=== PATIENT | male | born 1960 | race Caucasian/White ===

== ENCOUNTER → 2021-09-15 07:42 | Outpatient (CLI) | payer OTHER, SELFPAY ==
--- NOTE | ~2021-09-15 | MR_ITS ---
EXAMINATION: MR shoulder RT wo con DATE: 09/15/2021 08:24 INDICATION: Right rotator cuff muscle and tendon strain presenting with right shoulder pain and limit ed range of motion. TECHNIQUE: Magnetic resonance imaging (MRI) of the right shoulder was performed without intravenous c ontrast. Sequences included axial PD-weighted FS FSE, coronal oblique PD-weighted FS FSE, coronal obl ique T2-weighted FS FSE, sagittal PD-weighted FS FSE, and sagittal T1-weighted SE. COMPARISON: None. FINDINGS: Coracoacromial arch: The acromion undersurface is curved in morphology (type II). The coracoacromial ligament is normal. M ild to moderate acromioclavicular osteoarthritis with mild subarticular cystic change at the anterior and of the clavicle and small inferiorly directed osteophytes. Rotator cuff: Full-thickness tear of the complete width of the supraspinatus and infraspinatus tendons along the lindquist perior facet and anterior portion of the middle facet footplates with small amount of residual attach ed torn infraspinatus tendon material along the posterior aspect of the middle facet footplate. The t eres minor tendon is normal. Partial thickness articular sided tear involving the cephalad two thirds of the lesser tuberosity footplate of the subscapularis tendon. The bursal side of the tendon contig uous with the intact transverse humeral ligament remains intact as does the portion of the tendon ext ending to the caudal third of the lesser tuberosity where there is mild underlying cystic change. The re is mild fatty atrophy of the supraspinatus, infraspinatus and cephalad half of the subscapularis m uscle bellies. Biceps tendon, glenoid labrum and glenohumeral cartilage: The long head biceps tendon is torn from its glenoid anchor and retracted below the level of the inte rtubercular groove. Normal anterosuperior sublingual foramen. There is mild degenerative fraying ezequiel g the free edge of the posterior superior glenoid labrum. Glenohumeral cartilage is normal. Fluid: Moderate-sized glenohumeral joint effusion with fluid extending through the full-thickness rotator cu ff tear into the subacromial/subdeltoid bursa. No loose osteochondral bodies. Bones: Normal marrow signal. No fracture or pathologic marrow replacing process. IMPRESSION: 1. Complete full-thickness tear of the supraspinatus and infraspinatus tendons and moderate severity articular sided tear involving the cephalad two thirds of the lesser tuberosity footplate of the subs capularis tendon. 2. Complete tear and distal retraction of the long head biceps tendon. 3. Mild degenerative fraying along the free edge of the posterior superior glenoid labrum. 4. Mild to moderate acromioclavicular osteoarthritis. Reviewed, dictated and finalized at location B. [facility] IMPRESSION: 1. Complete full-thickness tear of the supraspinatus and infraspinatus tendons and moderate severity articular sided tear involving the cephalad two thirds of the lesser tuberosity footplate of the subscapularis tendon. 2. Complete tear and distal retraction of the long head biceps tendon. 3. Mild degenerative fraying along the free edge of the posterior superior yohana oid labrum. 4. Mild to moderate acromioclavicular osteoarthritis.
== END ==
PROVIDERS: PCP Family Medicine; Visit Provider Family Medicine
DX: M75.121 Complete rotator cuff tear or rupture of right shoulder, not specified as traumatic (principal); M19.011 Primary osteoarthritis, right shoulder; S46.811A Strain of other muscles, fascia and tendons at shoulder and upper arm level, right arm, initial encounter; S46.111A Strain of muscle, fascia and tendon of long head of biceps, right arm, initial encounter
CPT/HCPCS: 73221

== ENCOUNTER 2021-12-12 02:23 | Emergency (ER) | payer OTHER, SELFPAY ==
--- NOTE | ~2021-12-12 | XR_ITS ---
EXAMINATION: XR lumbar spine 2-3V DATE: 12/12/2021 04:05 INDICATION: Low back pain TECHNIQUE: Anteroposterior and lateral views of the lumbar spine, and cone-down lateral view of the l umbosacral junction were obtained. COMPARISON: None. FINDINGS: There is no fracture, dislocation, or subluxation. The vertebral body heights are normal. T here is moderate loss of intervertebral disc space height at L4-5 and mild loss of disc space height at L1-2 and L2-3. Small degenerative osteophytes project from the anterior endplates of multiple vert ebral bodies. There is moderate facet osteoarthritis of the lower lumbar spine. IMPRESSION: 1. Moderate lumbar spondylosis without acute findings. Reviewed, dictated and finalized at location A.
[2021-12-12 02:28] VITALS: BP 130/87; PULSE 82; RESP 17; TEMP 36.6; O2SAT 97
[2021-12-12] MEDS: SODIUM CHLORIDE 0.9% IV 1,000 ML 999 ML IV CONT (03:30)
[2021-12-12] MEDS: KETOROLAC 30 MG/ML VIAL (*BKC) IV PUSH (03:40)
[2021-12-12] MEDS: diazePAM INJ (*CRX) 10 MG/2 ML SYRINGE 5 MG IV PUSH (03:43)
[2021-12-12] MEDS: MORPHINE SULFATE (*CRX) 4 MG/ML INJ IV PUSH (05:13)
--- NOTE | 2021-12-12 06:32 | ED.GENADULT ---
HPI - General Adult General Chief complaint: Back Pain/Injury Stated complaint: LOWER BACK PAIN Time Seen by Provider: 12/12/21 02:55 History of Present Illness HPI narrative: Patient is a 61-year-old male who presents to the ER with low back pain. Began yesterday. Reports he is at work and been lifting a vanity. He felt a pull in his right low back. Pain is slowly increased throughout the day. Worse with twisting and bending. Radiates into the legs. No numbness or tingling of groin. No difficulty with urination or defecation. Has had similar pain in the past. He has been applying icCallFire hot without improvement. Has not taken any oral medications. Related Data Home Medications Medication Instructions Recorded Confirmed sodium hyaluronate (viscosup) mg INTRA-ARTICULAR 12/12/21 [Euflexxa] Allergies Allergy/AdvReac Type Severity Reaction Status Date / Time No Known Allergies Allergy Verified 11/25/21 10:40 Review of Systems Review of Systems: All systems reviewed & are unremarkable except as noted in HPI and below Constitutional: Constitutional: Denies chills, Denies fever(s) and Denies weakness Gastrointestinal: Gastrointestinal: Denies abdominal pain, Denies constipation, Denies nausea and Denies vomiting Genitourinary: Genitourinary: Denies oliguria, Denies dysuria and Denies urinary incontinence Musculoskeletal: Musculoskeletal: Reports back pain, Denies arthralgias and Reports muscle cramps Neurologic: Denies headache(s), Denies focal weakness and Denies numbness PMFSH Past Medical History Medical History Arthritis Arthritis of joint of toe Bilateral knee pain Chronic headaches DJD of AC (acromioclavicular) joint Enlarged prostate without lower urinary tract symptoms (luts) Fibroma of lip Hair loss Hallux rigidus of left foot Hearing loss Kidney stones Left knee DJD Right knee DJD Vision abnormalities Wears glasses Family History Family History Father Patient's father is Mother Hypertension Sibling Malignant neoplasm of prostate Other Arthritis Cerebrovascular accident High cholesterol Malignant neoplasm Social History Social History Smoking packs per day: 1 Smoking cigarettes per day: 20.0 Years smoked: 25 Smoking pack-years: 25.00 Tobacco type: smokeless tobacco Smokeless tobacco user: chewing tobacco Second hand tobacco smoke exposure: No Smoking end date: 09/11/97 Alcohol intake: current Drinks per week: 8 Substance use: never Substance use type: does not use Gender identity (if verbalized by the patient): Male Exam Narrative: GENERAL: Uncomfortable-appearing, well-nourished, and in no acute distress. HEAD: Normocephalic, atraumatic. CHEST: Clear to auscultation. No respiratory distress. HEART: Regular rate and rhythm. Normal peripheral pulses. Back: No midline tenderness of the thoracic or lumbar spine. There is palpable spasm and tenderness in the right paraspinal muscular region of L3/4. No left-sided paraspinal muscular tenderness. EXTREMITIES: Normal range of motion. No edema. SKIN: Warm, dry, no rash. NEURO: Alert and oriented x3. Able ambulate with normal strength in legs. PSYCH: Normal mood and affect. Course Course Emergency Course: Patient with modest improvement after Valium and Toradol and fluids. Patient subsequently received a dose of morphine IV. After this injection patient felt as if his pain was significant improved and was comfortable discharge home. Will discharge with anti-inflammatory medication as well as antispasmodics. Will give work note. Recommend follow-up with PCP. Vital Signs Vital signs: Vital Signs Temperature 97.9 F 12/12/21 02:28 Pulse Rate 82 12/12/21 02:28 Respiratory Rate 17 12/12/21 02:28 Blood Pressure 130/87
[2021-12-12 06:44] VITALS: BP 116/62; PULSE 70; RESP 18; O2SAT 99
== END 2021-12-12 06:50 | disposition home or self-care (01) ==
PROVIDERS: Emergency Provider Emergency Medicine; PCP Family Medicine
DX: M62.830 Muscle spasm of back (principal); N40.0 Benign prostatic hyperplasia without lower urinary tract symptoms; M19.019 Primary osteoarthritis, unspecified shoulder; M17.0 Bilateral primary osteoarthritis of knee; Z87.442 Personal history of urinary calculi; Z87.891 Personal history of nicotine dependence; X50.0XXA Overexertion from strenuous movement or load, initial encounter
CPT/HCPCS: 72100; 96361; 96374; 96375; 99284; J1885; J2270; J3360; J7030

== ENCOUNTER 2022-07-29 10:10 | Outpatient (CLI) | payer OTHER, SELFPAY ==
--- NOTE | 2022-07-29 10:25 | ECG_ITS ---
Measurements Intervals [place] Rate: 66 P: 24 SC: 138 QRS: 64 QRSD: 104 T: 21 QT: 379 QTc: 398 Interpretive Statements SINUS RHYTHM NORMAL ECG NO PREVIOUS ECG AVAILABLE FOR COMPARISON Electronically Signed On 07-29-2022 12:28:33 COMMUNITY HEALTH EDUCATION COORDINATOR by Karthik Luna D.O.
== END 2022-07-29 10:11 | disposition home or self-care (01) ==
LOC: ANHLAB 10:13
PROVIDERS: PCP Family Medicine; Visit Provider Orthopaedic Surgery
DX: Z72.0 Tobacco use (principal)
CPT/HCPCS: 93005

== ENCOUNTER 2022-08-02 01:07 | Day surgery (SDC) | payer OTHER, SELFPAY ==
[2022-07-26 16:46] VITALS: BMI 25.1
--- NOTE | 2022-07-26 16:51 | PC.NURSE ---
Report to the Outpatient Waiting Room, entrance under the green pavilion located off [facility], at time 10:00AM on date 08-02-22. Planned Procedure Time: 12:00PM. Time changes happen often and if your time is changed the preop area will call you the afternoon before. - You and your visitor will be asked to self-screen and do not enter if you have any COVID symptoms. - Only one visitor is requested with a max of two and NO children visitors are allowed at this time. - The patient visitor may be requested to leave or wait in car when not with patient due to distancing restrictions. - A mask is optional within the hospital. Patients may have clear liquids (water, carbonated beverages, clear teas, apple juice) until 3 hours prior to surgery (09:00AM) with a maximum of 20 ounces. - No food from midnight until time of surgery Take the following medications with a SIP of water the morning of surgery: N/A Medications to discontinue per physician N/A Date to take last dose N/A Please no make-up, nail uzbek, hairspray, perfume, deodorant, or body powder the day of surgery. No jewelry (including any body piercings) or valuables the day of surgery, leave them at home. Please take a shower or bath the night before, or the morning of, surgery with an antibacterial soap. Wear comfortable, loose fitting clothing. - Jewelry must be removed prior to entering the operating room. Rings and piercings that are not removed may be cut off. - The hospital will not accept responsibility for valuables. - Please leave all valuables, including medications, at home the day of surgery. If you are going home after surgery, a licensed intermodal owner operator truck driver must drive you home. - NO public transportation without another adult if you receive anesthesia. - We recommend that an adult stay with you for 24 hours following discharge. - We also recommend that you do not drive, make important decision, drink alcoholic beverages, or take any drugs that were not prescribed by your health care provider for at least 24 hours after your discharge time. Follow any additional instructions given to you from your surgeon. If you or anyone in your household have experienced Covid symptoms in the past week, please notify your surgeon or the nurse liaison at the phone number below for possible testing. Telephone instructions given to PATIENT and asked if any additional questions and then verbalized understanding. Patient advised to call surgeon office or pre surgery nurse liaison [phone] if any additional questions.
--- NOTE | 2022-08-01 12:46 | WPDANESEPPF ---
Anes - Initial Pre Proc Eval Procedure: Operation Date: 08/02/22 12:00 Proposed Procedures p Right Rotator Cuff Repair - Renato Scott MD Date/Time: 08/01/22 12:46 Surgeon: Renato Scott MD Pre Op Diagnosis: Rt Rot Cuff Tear Patient Data Age: 62 Gender: M Height: 1.73 m Weight: 75 kg Allergies Allergy/AdvReac Type Severity Reaction Status Date / Time No Known Allergies Allergy Verified 07/26/22 16:42 Home Medications Medication Instructions Recorded Confirmed Type clindamycin phosphate 1 % topical 1 applic topical DAILY #30 grams 07/21/22 07/26/22 Rx gel chlorhexidine gluconate 4 % 1 applic topical ONCE #237 mL 07/25/22 07/26/22 Rx topical liquid (Hibiclens) Patient hx anesthesia problems: none Family hx anesthesia problems: none Results Review: All pre-operative results and documents have been reviewed as part of the pre-operative evaluation. [facility] Past Medical History Medical History Arthritis Arthritis of joint of toe Bilateral knee pain Chronic headaches DJD of AC (acromioclavicular) joint Enlarged prostate without lower urinary tract symptoms (luts) Fibroma of lip Hair loss Hallux rigidus of left foot Hearing loss Kidney stones Left knee DJD Right knee DJD Vision abnormalities Wears glasses Family History Family History Father Patient's father is Mother Hypertension Sibling Malignant neoplasm of prostate Other Arthritis Cerebrovascular accident High cholesterol Malignant neoplasm Social History Social History Smoking packs per day: 1 Smoking cigarettes per day: 20.0 Years smoked: 25 Smoking pack-years: 25.00 Smoking status: Former smoker Tobacco type: cigarettes Smokeless tobacco user: chewing tobacco Second hand tobacco smoke exposure: Yes Smoking end date: 09/11/97 Alcohol intake: current Drinks per week: 4 Substance use: never Substance use type: does not use Living arrangements: with family Additional occupation/education comments: [employer] Gender identity (if verbalized by the patient): Male Spiritual care concerns: No Anes - Eval Final PreProcedure Day of Procedure 08/01/22 12:46 Patient weight: normal Heart: regular rate and rhythm Lungs: clear to auscultation and normal air movement Airway: Mallampati scale class II Neurological: alert and oriented Last oral intake: >/= 8 hours ASA classification: II Emergent: no Anesthetic plan: proceed Anesthesia type and monitoring: general ETT Results Review: All pre-operative results and documents have been reviewed as part of the pre-operative evaluation. Informed Consent: The patient's anesthetic plan and its attendant risks and benefits were discussed with the patient/family/POA. Questions were solicited and answers provided to the satisfaction of the patient/family/POA.
--- NOTE | 2022-08-01 12:48 | WPDANESPNB ---
Anes - Peripheral Nerve Block Date/Time: 08/01/22 12:48 I have discussed with the patient/family/POA the placement of a peripheral nerve block for post-operative pain management, including associated risks, benefits, complications, and side effects. Alternative methods of post-operative analgesia were detailed. Questions were solicited and answers provided to the satisfaction of the patient/family/POA. Time-Out: A pre-procedural Time-Out was completed immediately before starting the procedure and confirmed: Patient Identification, Site, Procedure, Patient Position and the Availability of Requisite Equipment. Clinical Indications: Acute post-operative pain management requested by the operative surgeon. Nerve Block Insertion Note Anes-nerve block: supraclavicular right Patient position: supine Skin prep: chlorhexidine Needle: 22 gauge, stimulating, insulated echogenic needle. Needle length: 80 mm Technique: ultrasound (in plane) Injectate: bupivacaine 0.25% with epi 5 mcg/ml (20cc) Observations: tolerated well Complications: none Procedure start time:: 1215 Procedure end time:: 1220
[2022-08-02] VITALS (8 sets, daily range): BP systolic 107–132; BP diastolic 49–76; PULSE 66–98; RESP 14–18; TEMP 36.2–36.3; O2SAT 98–100
[2022-08-02] MEDS: LACTATED RINGERS 1,000 ML 30 ML IV CONT (10:50)
[2022-08-02] MEDS: ACETAMINOPHEN 500 MG TABLET 1000 MG PO (11:01)
[2022-08-02] MEDS: CELECOXIB 200 MG CAPSULE PO (11:01)
--- NOTE | 2022-08-02 11:59 | WPDHPUPDATE1 ---
History and Physical Update Update Date/Time: 08/02/22 11:59 History and Physical has been reviewed, including an updated exam of the patient. There are NO changes in the patient's condition. Risks, benefits, and alternatives have been discussed and questions answered. Patient agrees to proceed with procedure.
[2022-08-02] MEDS: ceFAZolin 2 GM/D5W 50 ML 2 GM/50 ML BAG IVPB (12:27)
--- NOTE | 2022-08-02 14:18 | W.PM.PROC2 ---
Procedure Note - Detailed Date of Procedure 08/02/22 Pre-op Diagnosis Rt Rot Cuff Tear, AC joint djd Post-op Diagnosis Same Procedure Performed REPAIR RIGHT ROTATOR CUFF WITH DISTAL CLAVICLE EXCISION Surgeon Renato Scott MD Anesthesia General Description of Procedure THE PATIENT WAS TAKEN TO THE OPERATING ROOM AND THEN INTUBATED AND PLACED IN THE BEACH CHAIR POSITION. THE RIGHT UPPER EXTREMITY WAS PREPPED AND DRAPED IN THE NORMAL STERILE FASHION. AN INCISION WAS MADE IN BETWEEN THE AMBERLY-LATERAL ACROMION AND THE AC JOINT. THE FASCIA WAS IDENTIFIED.THE AC JOINT WAS IDENTIFIED AND INCISED. THE AC JOINT WAS VERY ARTHRITIC. A DISTAL CLAVICLE EXCISION WAS PREFORMED. THE CAPSULE WAS IRRIGATED THEN CLOSED WITH 0 VICRYL SUTURE. NEXT A MINI OPEN INCISION WAS MADE THROUGH THE DELTOID MUSCLE EXPOSING THE SUBACROMIAL SPACE. A LIMITED ACROMIOPLASTY WAS PREFORMED. THE ROTATOR CUFF WAS IDENTIFIED. THERE WAS A FULL THICKNESS TEAR WITH RETRACTION OF ALL TENDONS INCLUDING THE TERES MINOR WHICH WAS SHOWN TO BE INTACT ON MRI EVALUATION. THE BICEPS TENDON WAS RETRACTED AND WAS NOT VISIBLE. THE SUBSCAPULARIS TENDON WAS INTACT. THE GREATER TUBEROSITY WAS DEBRIDED TO BLEEDING BONE. THE REMAINING CUFF EDGES WERE FREED UP FROM THE UNDERLYING SCAR AND APPROXIMATED TO THE GREATER TUBEROSITY. THE ANTERIOR EDGES OF THE SUPRASPINATUS WERE VERY THINNED. 3 ARTHREX 5.5 SUTURE ANCHORS WERE PLACED IN TO GOOD BONE AND HAD VERY GOOD BITES. NEREIDA-MROALES TYPE REPAIRS WERE DONE TO THE ROTATOR CUFF AND THERE WAS GOOD APPROXIMATION TO THE GREATER TUBEROSITY. THE REPAIR WAS EXCELLENT. THINNING CUFF EDGES HOWEVER WERE THE MAINSTAY OF THE ANTERIOR CUFF REPAIR. THE POSTERIOR CUFF EDGES HAD GOOD THICK TENDON. THERE WAS NO IMPINGEMENT ON THE REPAIR FROM THE ACROMION WITH RANGE OF MOTION. THE WOUND WAS IRRIGATED WITH COPIOUS AMOUNTS OF ANTIBIOTIC SOLUTION. THE DELTOID MUSCLE WAS REPAIRED WITH #2 FIBER WIRE AND 0 VICRYL SUTURE. THE SUBCUTANEOUS LAYER WAS APPROXIMATED WITH 2-0 VICRYL. THE SKIN WAS APPROXIMATED WITH 3-0 QUIL AND DERMABOND. STERILE DRESSING WAS APPLIED. PATIENT WAS EXTUBATED. Estimated Blood Loss 20 Complications No immediate complications Condition Stable Disposition PACU
[2022-08-02] MEDS: oxyCODONE HCL (*CRX) 5 MG TAB IR PO (15:45)
== END 2022-08-02 16:42 | disposition home or self-care (01) ==
PROVIDERS: PCP Family Medicine; Visit Provider Orthopaedic Surgery
PROC: (CPT 23420; principal; 2022-08-02 12:00)
DX: S46.011A Strain of muscle(s) and tendon(s) of the rotator cuff of right shoulder, initial encounter (principal); G89.18 Other acute postprocedural pain; W01.0XXA Fall on same level from slipping, tripping and stumbling without subsequent striking against object, initial encounter; Y92.9 Unspecified place or not applicable; Y99.0 Civilian activity done for income or pay; F17.220 Nicotine dependence, chewing tobacco, uncomplicated
CPT/HCPCS: 23410; 23120; 64415; A9270; C1713; J0330; J0690; J1100; J2250; J2405; J2704; J3010; J7120

== ENCOUNTER 2022-11-11 08:03 | Outpatient (CLI) | payer OTHER, SELFPAY ==
[2022-11-11 19:08] LABS: Alanine Aminotransferase 29 U/L (6-50); Albumin Level 4.3 g/dL (3.5-5.1); Alkaline Phosphatase 80 U/L (38-126); Anion Gap 6 mmol/L (8-16); Aspartate Amino Transferase 36 U/L (17-59); Bilirubin,Total 0.7 mg/dL (0.2-1.3); Blood Urea Nitrogen 22 mg/dL (9-20); Calcium 8.9 mg/dL (8.4-10.2); Carbon Dioxide 31 mmol/L (22-30); Chloride 102 mmol/L (98-107); Cholesterol 223 mg/dL (0-200); Estimated Glomerular Filt Rate > 60; Glucose 72 mg/dL (65-110); HDL Direct 44 mg/dL; LDL Cholesterol Direct 138 mg/dL; Potassium 5.1 mmol/L (3.4-5.0); Sodium 139 mmol/L (137-145); Triglycerides 105 mg/dL (<150)
[2022-11-11 19:33] LABS: Prostate Specific Antigen 2.8 ng/mL (< OR = 4.0)
== END 2022-11-11 08:04 | disposition home or self-care (01) ==
LOC: ANHGOSHLAB 08:04
PROVIDERS: PCP Family Medicine; Visit Provider Family Medicine
DX: Z13.228 Encounter for screening for other metabolic disorders (principal); E78.5 Hyperlipidemia, unspecified; Z12.5 Encounter for screening for malignant neoplasm of prostate
CPT/HCPCS: 36415; 80053; 80061; 84153; G0103

== ENCOUNTER 2023-11-17 08:01 | Outpatient (CLI) | payer OTHER, SELFPAY ==
[2023-11-17 13:00] LABS: Alanine Aminotransferase 22 U/L (6-50); Albumin Level 4.1 g/dL (3.5-5.1); Alkaline Phosphatase 82 U/L (38-126); Anion Gap 5 mmol/L (8-16); Aspartate Amino Transferase 41 U/L (17-59); Bilirubin,Total 0.6 mg/dL (0.2-1.3); Blood Urea Nitrogen 20 mg/dL (9-20); Carbon Dioxide 28 mmol/L (22-30); Chloride 107 mmol/L (98-107); Cholesterol 216 mg/dL (0-200); Estimated Glomerular Filt Rate > 60; Glucose 85 mg/dL (65-110); HDL Direct 47 mg/dL; Potassium 4.3 mmol/L (3.4-5.0); Sodium 140 mmol/L (137-145); Triglycerides 98 mg/dL (<150)
[2023-11-17 13:11] LABS: LDL Cholesterol Direct 138 mg/dL
[2023-11-17 13:27] LABS: Prostate Specific Antigen 2.9 ng/mL (< OR = 4.0)
== END 2023-11-17 08:02 | disposition home or self-care (01) ==
LOC: ANHGOSHLAB 08:02
PROVIDERS: PCP Family Medicine; Visit Provider Family Medicine
DX: Z12.5 Encounter for screening for malignant neoplasm of prostate (principal); Z13.220 Encounter for screening for lipoid disorders; Z13.228 Encounter for screening for other metabolic disorders
CPT/HCPCS: 36415; 80053; 80061; 84153; G0103

== ENCOUNTER 2024-04-15 18:23 | Emergency (ER) | payer OTHER, SELFPAY ==
--- NOTE | ~2024-04-15 | CT_ITS ---
EXAMINATION: CT abdomen pelvis wo con DATE: 04/15/2024 19:12 INDICATION: R flank, R sided abd pain, hx stones TECHNIQUE: Computed tomography (CT) of the abdomen and pelvis was performed without intravenous contr ast. Automated exposure control and iterative reconstruction technique were employed. The dose-length product was 327.64 mGy-cm. COMPARISON: None. FINDINGS: Lower thorax: Unremarkable Liver: Normal. Biliary/Gallbladder: Gallbladder is normal. No bile duct dilation. Pancreas: No mass or duct dilation. Spleen: Normal. Adrenals:No mass. Kidneys: Moderate right perinephric stranding. Mild right hydronephrosis. No suspicious mass. Normal left kidney GI tract: No small or large bowel dilation. Normal appendix. Mesentery/Peritoneum: No ascites, mass, or free air. Retroperitoneum: No mass. Atherosclerotic abdominal aortic and/or arterial calcifications. Pelvis: 3 mm calcification in the distal right ureter at the entrance of the UVJ. Prostatomegaly. Soft Tissues: Soft tissues and body wall unremarkable. Bones: No acute osseous finding. IMPRESSION: 3 mm distal right ureteral calcification at the entrance of the right UVJ causing mild-moderate obstr uctive uropathy. Reviewed, dictated and finalized at location K. IMPRESSION: 3 mm distal right ureteral calcification at the entrance of the right UVJ causi ng mild-moderate obstructive uropathy.
[2024-04-15 18:26] VITALS: BP 151/95; PULSE 86; RESP 20; TEMP 36.7; O2SAT 98
--- NOTE | 2024-04-15 18:55 | ED.BACK ---
HPI - Back Pain/Injury General Chief Complaint: Back Pain/Injury <JULIET Anderson Last Filed: 04/15/24 19:02> Stated Complaint: R KIDNEY STONE <JULIET Anderson Last Filed: 04/15/24 19:02> Time Seen by Provider: 04/15/24 18:55 <JULIET Anderson Last Filed: 04/15/24 19:02> Focused HPI: Patient is a 64 y/o male who presents to the ED with c/o R flank pain. Patient reports he developed pain throughout his right flank region, right lower abdomen around 4:30 p.m. today. He has history of kidney stones and reports pain is similar. He tried taking a oral Toradol around 5:30 p.m. but denies improvement. Reports trouble urinating, states he feels the urge to urinate, but only able to urinate a few dribbles at a time. Reports dysuria, denies hematuria. Reports mild nausea, no vomiting. Denies fevers. GENERAL: Uncomfortable-appearing, difficulty sitting still, in moderate acute distress d/t pain. HEAD: Normocephalic, atraumatic. CHEST: Clear to auscultation. ?No respiratory distress. HEART: Regular rate and rhythm.? ABD: TTP throughout R lower abdomen into flank region. NEURO: ?Alert and oriented x3. Patient screened in triage and initial orders placed.? ?Additional care and disposition to be based upon?diagnostic testing and treatment. <JULIET Anderson Last Filed: 04/15/24 19:02> Source: patient <JULIET Anderson Last Filed: 04/15/24 19:02> Mode of arrival: ambulatory <JULIET Anderson Filed: 04/15/24 19:02> Limitations: no limitations <JULIET Anderson Filed: 04/15/24 19:02> Related Data Allergies/Adverse Reactions: Allergies Allergy/AdvReac Type Severity Reaction Status Date / Time No Known Allergies Allergy Verified 03/04/24 09:41 <Minerva Watkins PA-C - Last Filed: 04/15/24 19:02> Review of Systems Review of Systems: All systems as dictated in HPI <JULIET Holder Last Filed: 04/16/24 01:44> [facility] Past Medical History Medical History: Medical History Arthritis Arthritis of joint of toe Bilateral knee pain Chronic headaches DJD of AC (acromioclavicular) joint Enlarged prostate without lower urinary tract symptoms (luts) Fibroma of lip Hair loss Hallux rigidus of left foot Hearing loss Kidney stones Left knee DJD Right knee DJD Rotator cuff arthropathy of right shoulder Vision abnormalities Wears glasses <JULIET Anderson Last Filed: 04/15/24 19:02> Surgical History Surgical History: Surgical History History of rotator cuff surgery <JULIET Anderson Last Filed: 04/15/24 19:02> Family History Family History: Family History Father Patient's father is Mother Hypertension Sibling Malignant neoplasm of prostate Other Arthritis Cerebrovascular accident High cholesterol Malignant neoplasm <JULIET Anderson Last Filed: 04/15/24 19:02> Social History Social History: Social History Smoking packs per day: 1 Smoking cigarettes per day: 20.0 Years smoked: 25 Smoking pack-years: 25.00 Smoking status: Former smoker Tobacco type: cigarettes Smokeless tobacco user: chewing tobacco Second hand tobacco smoke exposure: Yes Smoking end date: 09/11/97 Alcohol intake: current Drinks per week: 4 Substance use: never Substance use type: does not use Lack of Transportation: No Lack of Food: Never True Current Housing: I Have Housing Concerned About Future Housing: No Difficulty Paying Gas/Electric Bills: No Difficulty Paying for Meds: No Currently Unemployed: No Education: High School Diploma/GED Difficulty w/ Childcare or Family Care: N
[2024-04-15] MEDS: HYDROcodone/acetaminophen (*CRX) 5-325 MG TABLET 1 TAB PO (19:00)
[2024-04-15 19:11] LABS: Basophils Percent Auto 0.5 % (0.2-1.2); Eosinophils Absolute Auto 0.1 K/mm3 (0-0.3); Eosinophils Percent Auto 0.7 % (0-4.4); Hematocrit 44.5 % (42.0-52.0); Immature Granulocyte Absolute 0.03 K/mm3 (0.00-0.031); Immature Granulocyte Percent A 0.3 % (0-0.5); Lymphocytes Absolute Auto 2.23 K/mm3 (0.9-3.2); Lymphocytes Percent Auto 25.5 % (18.3-44.2); Mean Corpuscular HGB Conc 31.5 g/dl (32-36); Mean Corpuscular Hemoglobin 27.6 pg (26-34); Mean Corpuscular Volume 87.6 fl (80-100); Mean Platelet Volume 8.6 fl (7.4-10.4); Monocytes Absolute Auto 0.7 K/mm3 (0.1-0.6); Monocytes Percent Auto 7.8 % (2.6-8.5); Neutrophils Absolute Auto 5.7 K/mm3 (1.3-6.7); Neutrophils Percent Auto 65.2 % (45.5-73.1); Platelet Count Result 254 k/mm3 (150-375); Red Blood Count 5.08 M/mm3 (4.6-6.20); Red Cell Distribution Width 13.7 % (11.5-14.5); White Blood Count 8.8 K/mm3 (4.5-10.0)
[2024-04-15 19:21] LABS: Alanine Aminotransferase 20 U/L (6-50); Albumin Level 4.3 g/dL (3.5-5.1); Alkaline Phosphatase 75 U/L (38-126); Anion Gap 11 mmol/L (4-12); Aspartate Amino Transferase 29 U/L (17-59); Bilirubin,Total 0.4 mg/dL (0.2-1.3); Blood Urea Nitrogen 28 mg/dL (9-20); Calcium 8.9 mg/dL (8.4-10.2); Carbon Dioxide 24 mmol/L (22-30); Chloride 105 mmol/L (98-107); Estimated CRCL calculation 52 ml/min; Estimated Glomerular Filt Rate > 60; Glucose 119 mg/dL (65-110); Potassium 3.7 mmol/L (3.4-5.0); Sodium 140 mmol/L (137-145)
[2024-04-15 21:54] VITALS: BP 122/69
[2024-04-15 22:00] VITALS: BP 118/74; PULSE 76; RESP 18; O2SAT 98
[2024-04-15 22:30] VITALS: BP 116/79
[2024-04-15 22:35] LABS: Add Urine Microscopic? YES; Appearance Urine Cloudy (Clear); Bacteria Urine None Seen /hpf; Bilirubin Urine 1+ (Negative); Blood Urine Negative (Negative); Calcium Oxalate Crystals Urine Present /hpf; Color Urine Dark Yellow (Yellow); Glucose Urine UA Negative (Negative); Ketones Urine Trace mg/dL (Negative); Leukocyte Esterase Ur Negative LEU/UL (Negative); Need Manual Microscopic Reviewed; Nitrate Urine Negative (Negative); Protein Urine 1+ mg/dL (Negative); Specific Grav Ur 1.045 (1.001-1.035); Squamous Epithelial Cell Urine None Seen /hpf (Few); WBC Urine 0-5 /hpf (0-3)
--- NOTE | 2024-04-15 23:03 | PC.NURSE ---
care and report given to DESIRAE Taylor. all questions answered.
[2024-04-15] MEDS: KETOROLAC 30 MG/ML VIAL (*BKC) 15 MG IV PUSH (23:09)
== END 2024-04-16 00:11 | disposition home or self-care (01) ==
PROVIDERS: Physician Assistant; Emergency Provider Physician Assistant; PCP Family Medicine
DX: N20.1 Calculus of ureter (principal); M19.90 Unspecified osteoarthritis, unspecified site; Z87.442 Personal history of urinary calculi
CPT/HCPCS: 36415; 74176; 80053; 81001; 85025; 96374; 99284; A9270; J1885

== ENCOUNTER 2024-05-07 16:07 | Observation (INO) | payer OTHER, SELFPAY ==
--- NOTE | ~2024-05-07 | XR_ITS ---
EXAMINATION: XR retrograde pyelo w/stent RT DATE: 05/08/2024 14:19 INDICATION: Right ureteral stone. TECHNIQUE: 26 intraoperative fluoroscopic views of the abdomen and pelvis were obtained. I was not pr esent. Fluoroscopy exposure time was 57 seconds. COMPARISON: CT abdomen and pelvis 05/07/2024 FINDINGS: The right-sided retropyelogram demonstrates mild hydronephrosis and hydroureter. The final images demonstrate a right internal ureteral stent in expected position. IMPRESSION: 1. Mild right hydronephrosis and hydroureter. 2. Right internal ureteral stent in expected position. Reviewed, dictated and finalized at location A.
--- NOTE | ~2024-05-07 | CT_ITS ---
EXAMINATION: CT abdomen pelvis wo con DATE: 05/07/2024 20:59 INDICATION: Right flank pain. TECHNIQUE: Computed tomography (CT) of the abdomen and pelvis was performed without intravenous contr ast. Automated exposure control and iterative reconstruction technique were employed. The dose-length product was 339.47 mGy-cm. COMPARISON: CT abdomen and pelvis 04/15/2024 FINDINGS: There is a portion of the lung bases demonstrate mild atelectasis. There is a 4 mm nodule i n left lower lobe, likely benign. No pleural effusion. The heart size is normal. No pericardial effus ion. The liver, gallbladder, spleen, pancreas, adrenal glands, and left kidney are normal. There is m ild right hydronephrosis and hydroureter. There is a 3 mm stone at right ureterovesicular junction. T he prostate is moderately enlarged. There are no dilated loops of bowel. The appendix is normal. Ther e are no pathologically enlarged lymph nodes. There is no free intraperitoneal fluid. There is severe lumbar spondylosis. IMPRESSION: 1. 3 mm stone at right ureterovesicular junction with mild right hydronephrosis and hydroureter. Reviewed, dictated and finalized at location A.
[2024-05-07 17:05] VITALS: BP 125/70; PULSE 87; RESP 18; TEMP 36.6; O2SAT 100
--- NOTE | 2024-05-07 17:13 | ED.ABDPAIN ---
HPI - Abdominal Pain General Chief Complaint: Abdominal Pain <JULIET Hawkins Last Filed: 05/09/24 09:50> Stated Complaint: right flank pain <JULIET Hawkins Last Filed: 05/09/24 09:50> Time Seen by Provider: 05/07/24 17:13 <JULIET Hawkins Last Filed: 05/09/24 09:50> Focused HPI: This is a 64 year old male that presents to the ER for right flank pain. Reports history of kidney stones and his pain feels similar. Reports difficulty urinating. GENERAL: Well-appearing, well-nourished, and in no acute distress. HEAD: Normocephalic, atraumatic. CHEST: Clear to auscultation. ?No respiratory distress. HEART: Regular rate and rhythm.? NEURO: ?Alert and oriented x3. Patient screened in triage and initial orders placed.? ?Additional care and disposition to be based upon?diagnostic testing and treatment. <JULIET Hawkins Last Filed: 05/09/24 09:50> Source: patient <JULIET Anderson Last Filed: 05/08/24 03:59> Mode of arrival: ambulatory <JULIET Anderson Last Filed: 05/08/24 03:59> Limitations: no limitations <JULIET Anderson Last Filed: 05/08/24 03:59> History of Present Illness HPI narrative: Agree with above HPI. Was seen in the ED here on 04/15 and diagnosed with R distal stone. Unsure if he has passed this. Reports ongoing right flank pain. Reports he has not been able to urinate for the last 40 hours. Has never required catheter in the past. Denies nausea, vomiting, fevers. <JULIET Anderson Last Filed: 05/08/24 03:59> Related Data Home Medications: Home Medications Medication Instructions Recorded Confirmed No Home Medications 05/08/24 05/08/24 <JULIET Hawkins Last Filed: 05/09/24 09:50> Allergies/Adverse Reactions: Allergies Allergy/AdvReac Type Severity Reaction Status Date / Time No Known Allergies Allergy Verified 05/08/24 13:16 <Karina Clark PA-C - Last Filed: 05/09/24 09:50> Review of Systems Review of Systems: All systems reviewed & are unremarkable except as noted in HPI and below <Minerva Watkins PA-C - Last Filed: 05/08/24 03:59> [facility] Past Medical History Medical History: Medical History Arthritis Arthritis of joint of toe Bilateral knee pain Chronic headaches DJD of AC (acromioclavicular) joint Enlarged prostate without lower urinary tract symptoms (luts) Fibroma of lip Hair loss Hallux rigidus of left foot Hearing loss Kidney stones Left knee DJD Right knee DJD Rotator cuff arthropathy of right shoulder Vision abnormalities Wears glasses <Karina Clark PA-C - Last Filed: 05/09/24 09:50> Surgical History Surgical History: Surgical History History of rotator cuff surgery <Karina Clark PA-C - Last Filed: 05/09/24 09:50> Family History Family History: Family History Father Patient's father is Mother Hypertension Sibling Malignant neoplasm of prostate Other Arthritis Cerebrovascular accident High cholesterol Malignant neoplasm <Karina Clark PA-C - Last Filed: 05/09/24 09:50> Social History Social History: Social History Smoking packs per day: 1 Smoking cigarettes per day: 20.0 Years smoked: 25 Smoking pack-years: 25.00 Smoking status: Former smoker Smokeless tobacco user: chewing tobacco Second hand tobacco smoke exposure: Yes Alcohol intake: current Drinks per week: 6 Substance use: never Substance use type: does not use Do You Feel Safe in your Home?: Yes Lack of Transportation: No Lack of Food: Never True Current Housing: I Have Housing Concerned About Future Housing: No Diffi
[2024-05-07 17:39] LABS: Basophils Absolute Auto 0.1 K/mm3 (0.0-0.1); Basophils Percent Auto 0.7 % (0.2-1.2); Eosinophils Absolute Auto 0.1 K/mm3 (0-0.3); Hematocrit 43.1 % (42.0-52.0); Hemoglobin 13.9 g/dL (14.0-18.0); Immature Granulocyte Absolute 0.03 K/mm3 (0.00-0.031); Immature Granulocyte Percent A 0.3 % (0-0.5); Lymphocytes Absolute Auto 1.74 K/mm3 (0.9-3.2); Lymphocytes Percent Auto 20.1 % (18.3-44.2); Mean Corpuscular HGB Conc 32.3 g/dl (32-36); Mean Corpuscular Hemoglobin 28.3 pg (26-34); Mean Corpuscular Volume 87.6 fl (80-100); Mean Platelet Volume 8.6 fl (7.4-10.4); Monocytes Absolute Auto 0.7 K/mm3 (0.1-0.6); Monocytes Percent Auto 7.7 % (2.6-8.5); Neutrophils Absolute Auto 6.1 K/mm3 (1.3-6.7); Neutrophils Percent Auto 70.2 % (45.5-73.1); Platelet Count Result 241 k/mm3 (150-375); Red Blood Count 4.92 M/mm3 (4.6-6.20); Red Cell Distribution Width 13.5 % (11.5-14.5); White Blood Count 8.7 K/mm3 (4.5-10.0)
[2024-05-07 17:52] LABS: Alanine Aminotransferase 19 U/L (6-50); Albumin Level 4.2 g/dL (3.5-5.1); Alkaline Phosphatase 81 U/L (38-126); Anion Gap 12 mmol/L (4-12); Aspartate Amino Transferase 26 U/L (17-59); Bilirubin,Total 0.3 mg/dL (0.2-1.3); Blood Urea Nitrogen 35 mg/dL (9-20); Calcium 8.6 mg/dL (8.4-10.2); Carbon Dioxide 25 mmol/L (22-30); Chloride 101 mmol/L (98-107); Estimated CRCL calculation 34 ml/min; Estimated Glomerular Filt Rate 36; Glucose 116 mg/dL (65-110); Lipase 75 U/L (23-300); Potassium 3.8 mmol/L (3.4-5.0); Sodium 138 mmol/L (137-145)
[2024-05-07 20:03] LABS: Add Urine Microscopic? YES; Appearance Urine Clear (Clear); Bacteria Urine None Seen /hpf; Bilirubin Urine Negative (Negative); Blood Urine Negative (Negative); Color Urine Dark Yellow (Yellow); Glucose Urine UA Negative (Negative); Ketones Urine Trace mg/dL (Negative); Leukocyte Esterase Ur Negative LEU/UL (Negative); Nitrate Urine Negative (Negative); Protein Urine 1+ mg/dL (Negative); RBC Urine 0-2 /hpf (0-2); Specific Grav Ur 1.042 (1.001-1.035); Squamous Epithelial Cell Urine None Seen /hpf (Few); Urobilinogen Urine 0.2 mg/dL (<2.0); WBC Urine 0-5 /hpf (0-3); pH Urine 5.5 (5.0-9.0)
[2024-05-07] MEDS: SODIUM CHLORIDE 0.9% IV 1,000 ML 999 ML IV CONT ×2 (21:45→21:52)
[2024-05-07] MEDS: MORPHINE SULFATE (*CRX) 4 MG/ML INJ IV PUSH (21:53)
[2024-05-07] MEDS: ONDANSETRON INJ 4 MG/2 ML VIAL IV PUSH (21:53)
[2024-05-07] MEDS: TAMSULOSIN HCL 0.4 MG CAPSULE PO (21:54)
[2024-05-07 21:55] VITALS: BP 137/62; PULSE 82; RESP 16; TEMP 36.6; O2SAT 98
--- NOTE | 2024-05-07 21:56 | PC.NURSE ---
Patient was bladder scanned three times and each time 0mL was obtained in the reading. Patient states that he has not urinated in 40 hours. Notified EDP FEI Moura who VRBO a edwards catheter. First attempt of catheter did obtained urine in the edwards bag, however urine stopped draining and patient states he had 10/10 pain in his penis. At this time the edwards catheter was removed. Second attempt of edwards catheter was done with a coude. Coude was advanced all the way to the bifurcation, but no urine draining at this time. Notified EDP FEI Moura who advised to give patient fluids and see if the patient could urinate on their own.
[2024-05-08] VITALS (16 sets, daily range): BP systolic 89–127; BP diastolic 45–95; PULSE 52–86; RESP 10–20; TEMP 35.9–36.7; O2SAT 94–100
--- NOTE | 2024-05-08 04:06 | PC.NURSE ---
PT REQUEST TO PUT GOWN ON ONCE UPSTAIRS IN HIS ROOM.
[2024-05-08] MEDS: SODIUM CHLORIDE 0.9% IV 1,000 ML 100 ML IV CONT (07:40)
--- NOTE | 2024-05-08 08:16 | PM.IMHP ---
H&P: HPI History of Present Illness Date/Time: 05/08/24 08:16 Chief Complaint: Unable to urinate, kidney stone Narrative: Patient is a 64 year old man hx kidney stones, admitted for ADELE and right hydronephrosis due to an obstructive kidney stone. He had a kidney stone about 5 years ago, passed it with medications. He went to the ER 3 weeks ago [address] a [address] 04/15 showed a 3mm distal right ureteral calcification at the entrance of the right UVJ causing mild-moderate obstructive uropathy. Creatinine 1.2. Discharged home with tamsulosin, Vicodin, and Percocet and pain resolved until Monday. He had low abdominal pain followed by right flank pain. In the ER, he was afebrile, VSS. Labs showed ADELE, creatinine 1.9. CT abd/pelvis--3 mm stone at right ureterovesicular junction with mild right hydronephrosis and hydroureter. Urology consulted and taking to the OR today Review of Systems Review of Systems: No fevers, chills, nausea, vomiting, abdominal pain, or other symptoms PMFSH Past Medical History Medical History Arthritis Arthritis of joint of toe Bilateral knee pain Chronic headaches DJD of AC (acromioclavicular) joint Enlarged prostate without lower urinary tract symptoms (luts) Fibroma of lip Hair loss Hallux rigidus of left foot Hearing loss Kidney stones Left knee DJD Right knee DJD Rotator cuff arthropathy of right shoulder Vision abnormalities Wears glasses Surgical History Surgical History History of rotator cuff surgery Family History Family History Father Patient's father is Mother Hypertension Sibling Malignant neoplasm of prostate Other Arthritis Cerebrovascular accident High cholesterol Malignant neoplasm Social History Social History Smoking packs per day: 1 Smoking cigarettes per day: 20.0 Years smoked: 25 Smoking pack-years: 25.00 Smoking status: Former smoker Smokeless tobacco user: chewing tobacco Second hand tobacco smoke exposure: Yes Alcohol intake: current Drinks per week: 6 Substance use: never Substance use type: does not use Do You Feel Safe in your Home?: Yes Lack of Transportation: No Lack of Food: Never True Current Housing: I Have Housing Concerned About Future Housing: No Difficulty Paying Gas/Electric Bills: No Difficulty Paying for Meds: No Currently Unemployed: No Education: High School Diploma/GED Difficulty w/ Childcare or Family Care: No Living arrangements: with family Occupation/Education: occupation 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 Gender identity (if verbalized by the patient): Male Spiritual care concerns: No Meds Home Medications and Allergies Home Medications Medication Instructions Recorded Confirmed Type No Home Medications 05/08/24 05/08/24 History Allergies Allergy/AdvReac Type Severity Reaction Status Date / Time No Known Allergies Allergy Verified 05/07/24 17:14 Vital Signs Vital Signs - 24 hr 05/07/24 17:05 05/07/24 21:55 05/08/24 04:04 Temperature 97.8 F 98 F 97.9 F Pulse Rate 87 82 86 Respiratory Rate 18 16 16 Blood Pressure 125/70 137/62 127/76 Pulse Oximetry 100 98 98 Oxygen Delivery Room Air 05/08/24 05:18 Temperature 97.6 F Pulse Rate 56 L Respiratory Rate 16 Blood Pressure 110/81 Pulse Oximetry 98 Oxygen Delivery Exam Narrative: General - Awake and alert. No acute distress Eyes - PERRLA, EOM intact ENT - No thrush, No erythema Neck - No noticeable or palpable swelling Lymph Nodes - No lymphadenopathy Cardiovascular - RRR no m/r/g, no JVD Lungs: Clear to auscultation, No wheezing, use of accessory muscles, no crackles or wheezes. Skin - Skin warm and dry, no
--- NOTE | 2024-05-08 09:35 | WPDURCON ---
Assessment and Plan Assessment and plan (1) Calculus of distal right ureter: Code(s): N20.1 - Calculus of ureter Status: Acute Assessment and Plan: 3 mm right UVJ stone. Given persistent symptoms and inability to passed stone, will proceed with cystoscopy, right ureteroscopy, possible stone extraction, possible laser lithotripsy and possible right ureteral stent placement today with Dr. Ennis. Discussed procedure with patient and he is agreeable to proceed. Continue NPO diet. (2) ADELE (acute kidney injury): Code(s): N17.9 - Acute kidney failure, unspecified Status: Acute Assessment and Plan: Creatinine elevated from baseline to 1.9 upon arrival. Likely related to obstructing stone. Planning for surgical intervention today as above. Check repeat creatinine today. (3) Acute urinary retention: Code(s): R33.8 - Other retention of urine Status: Resolved Assessment and Plan: Noted to have elevated PVR on arrival and Cheng catheter placed but subsequently removed per patient request. He is now voiding spontaneously. Continue to monitor urine output. Check PVR to ensure adequate bladder emptying Urology Consult Note HPI Date Seen: 05/08/24 Requesting Physician: Mallorie Grewal APRN Primary Care Provider: Bello Hdz DO Consult Narrative Narrative: Faisal Simpson is a 64 year old male with history of prior kidney stones which have passed spontaneously who is being seen in consultation for right ureteral stone. He 1st had onset of symptoms about 3 weeks ago and was initially seen in the ER on 04/15/2024. At that time, he had a CT of his abdomen/pelvis which revealed a 3 mm distal right ureteral stone with [id number] obstructive uropathy. His pain was well controlled, therefore he was discharged with instructions to strain urine and follow-up with Urology. Unfortunately, he did not pass the stone and about 2 days ago his symptoms worsened to the point where he was having difficulty voiding. He return to the ER on 05/07/2024 with complaints of right flank pain and difficulty urinating. On arrival, his vital signs were stable and he was afebrile, WBC was within normal limits at 8.7. Creatinine was slightly elevated at 1.9. UA without concerns for infection. He was noted to have an elevated random bladder scan, therefore Cheng catheter was placed. Patient had significant discomfort with Cheng placement therefore was removed per his request. A CT of the abdomen/pelvis was repeated which again demonstrates a 3 mm right UVJ stone with mild right hydronephrosis. At the time of my evaluation, he states he is able to void but reports a weaker stream and complains of dysuria which she attributes to urethral irritation from catheter. He has noticed slight hematuria since Cheng removal. He continues to complain of right flank pain. Denies nausea, vomiting, fever, or chills. Review of Systems Review of Systems: All systems reviewed & are unremarkable except as noted in HPI and below PMFSH Past Medical History Medical History Arthritis Arthritis of joint of toe Bilateral knee pain Chronic headaches DJD of AC (acromioclavicular) joint Enlarged prostate without lower urinary tract symptoms (luts) Fibroma of lip Hair loss Hallux rigidus of left foot Hearing loss Kidney stones Left knee DJD Right knee DJD Rotator cuff arthropathy of right shoulder Vision abnormalities Wears glasses Surgical History Surgical History History of rotator cuff surgery Family History Family History Father Patient's father is Mother Hypertension Sibling Malignant neoplasm of prostate Other Arthritis Cerebrovascular accident High cholesterol Malignant neoplasm
[2024-05-08] MEDS: LACTATED RINGERS 1,000 ML 30 ML IV CONT (12:30)
--- NOTE | 2024-05-08 13:11 | PC.NURSE ---
To OR per [ ], IV [ ]. Report given to [balta].
[2024-05-08] MEDS: ACETAMINOPHEN 500 MG TABLET 1000 MG PO (13:16)
--- NOTE | 2024-05-08 13:17 | WPDANESEPPF ---
Anes - Initial Pre Proc Eval Procedure: Operation Date: 05/08/24 13:30 Proposed Procedures p Cystoscopy, Right Ureteroscopy, Possible Right Retrograde Pyelogram, Possible Right Stone Extraction, Possible Right Stent Placement, Possible Holmium Laser Procedure - Gilmar Ennis MD Date/Time: 05/08/24 13:17 Surgeon: Mallorie Grewal APRN Pre Op Diagnosis: Distal R UVJ stone, ADELE, Urinary retention Patient Data Age: 64 Gender: M Height: 1.73 m Weight: 75 kg Last Vital Signs Temp 97.6 F 05/08/24 05:18 Pulse 56 L 05/08/24 05:18 Resp 16 05/08/24 05:18 BP 110/81 05/08/24 05:18 Pulse Ox 98 05/08/24 05:18 O2 Del Method Room Air 05/07/24 17:05 Allergies Allergy/AdvReac Type Severity Reaction Status Date / Time No Known Allergies Allergy Verified 05/08/24 13:16 Home Medications Medication Instructions Recorded Confirmed Type No Home Medications 05/08/24 05/08/24 History Laboratory Tests 05/07/24 05/07/24 17:27 19:37 WBC 8.7 K/mm3 (4.5-10.0) RBC 4.92 M/mm3 (4.6-6.20) Hgb 13.9 L g/dL (14.0-18.0) Hct 43.1 % (42.0-52.0) MCV 87.6 fl (80-100) MCH 28.3 pg (26-34) MCHC 32.3 g/dl (32-36) RDW 13.5 % (11.5-14.5) Plt Count 241 k/mm3 (150-375) MPV 8.6 fl (7.4-10.4) Immature Gran % (Auto) 0.3 % (0-0.5) Neut % (Auto) 70.2 % (45.5-73.1) Lymph % (Auto) 20.1 % (18.3-44.2) [place] % (Auto) 7.7 % (2.6-8.5) Eos % (Auto) 1.0 % (0-4.4) Baso % (Auto) 0.7 % (0.2-1.2) Lymph # (Auto) 1.74 K/mm3 (0.9-3.2) [place] # (Auto) 0.7 H K/mm3 (0.1-0.6) Eos # (Auto) 0.1 K/mm3 (0-0.3) Baso # (Auto) 0.1 K/mm3 (0.0-0.1) Abs Immat Gran (auto) 0.03 K/mm3 (0.00-0.031) Absolute Neuts (auto) 6.1 K/mm3 (1.3-6.7) Absolute Nucleated RBC 0.000 K/mm3 (0.0-0.012) Nucleated RBC % 0.0 % (0.0-0.2) Sodium 138 mmol/L (137-145) Potassium 3.8 mmol/L (3.4-5.0) Chloride 101 mmol/L (98-107) Carbon Dioxide 25 mmol/L (22-30) Anion Gap 12 mmol/L (4-12) BUN 35 H mg/dL (9-20) Creatinine 1.90 H mg/dL (0.7-1.3) Estim Creat Clear Calc 34 ml/min Estimated GFR 36 L (59 - ) Glucose 116 H mg/dL (65-110) Calcium 8.6 mg/dL (8.4-10.2) Total Bilirubin 0.3 mg/dL (0.2-1.3) AST 26 U/L (17-59) ALT 19 U/L (6-50) Alkaline Phosphatase 81 U/L (38-126) Total Protein 7.0 g/dL (6.3-8.2) Albumin 4.2 g/dL (3.5-5.1) Lipase 75 U/L (23-300) Urine Color Dark yellow (Yellow) Urine Appearance Clear (Clear) Urine pH 5.5 (5.0-9.0) Ur Specific [place] 1.042 H (1.001-1.035) Urine Protein 1+ H mg/dL (Negative) Urine Glucose (UA) Negative mg/dL (Negative) Urine Ketones Trace H mg/dL (Negative) Ur Blood (Man) Negative (Negative) Urine Nitrate Negative (Negative) Urine Bilirubin Negative (Negative) Urine Urobilinogen 0.2 mg/dL (<2.0) Leukocyte Esterase Rfl Negative KRISHAN/UL (Negative) Urine RBC 0-2 /hpf (0-2) Urine WBC 0-5 /hpf (0-3) Ur Squamous Epith Cells None seen /hpf (Few) Urine Bacteria None seen /hpf Urine Casts 3-5 Patient hx anesthesia problems: none Family hx anesthesia problems: none Results Review: All pre-operative results and documents have been reviewed as part of the pre-operative evaluation. [facility] Past Medical History Medical History Arthritis Arthritis of joint of toe Bilateral knee pain Chronic headaches DJD of AC (acromioclavicular) joint Enlarged prostate without lower urinary tract symptoms (luts) Fibroma of lip Hair loss Hallux rigidus of left foot Hearing loss
--- NOTE | 2024-05-08 13:38 | WPDHPUPDATE1 ---
History and Physical Update Update Date/Time: 05/08/24 13:38 History and Physical has been reviewed, including an updated exam of the patient. There are NO changes in the patient's condition. Risks, benefits, and alternatives have been discussed and questions answered. Patient agrees to proceed with procedure.
[2024-05-08] MEDS: ceFAZolin 2 GM/D5W 50 ML 2 GM/50 ML BAG IVPB (13:44)
[2024-05-08] MEDS: LIDOCAINE HCL 2% GEL UROJET 10 ML PKG MUCOUS MEM (13:54)
--- NOTE | 2024-05-08 14:17 | W.PM.PROC2 ---
Procedure Note - Detailed Date of Procedure 05/08/24 Pre-op Diagnosis Distal R UVJ stone, ADELE Post-op Diagnosis Same Procedure Performed Cystoscopy, right ureteroscopy, stone extraction, retrograde pyelogram, stent insertion Surgeon Gilmar Ennis MD Anesthesia General Findings Stenotic right distal ureter 3mm stone identified and removed Retrograde pyelogram with moderate right hydroureteronephrosis Description of Procedure Informed consent is obtained. Patient taken the operating. He was given preoperative IV antibiotics. He was induced anesthesia. He was prepped and draped in normal sterile fashion in the dorsal lithotomy position. A 22 F cystoscope was inserted through the urethra into the bladder. The patient did have moderate bilobar prostatic hyperplasia. Inspection of the bladder revealed moderate trabeculation with no mucosal abnormalities. Patient had bilateral orthotopic orifices. Cannulated the right ureteral orifice with a wire and then dilated with an 810 coaxial dilator. At this point we inserted a semi rigid ureteroscope in the distal ureter. Approximately 2cm above the ureterovesical junction there was narrowing present. We were able to navigate the rigid scope past this narrowed area and immediately encountered the stone above this narrowing. The stone was grasped with a Zero tip Nitinol basket and removed. We then mm scope inspected the distal half of the ureter no residual stones seen. Retrograde pyelogram was performed and noted moderate right hydroureteronephrosis. Over the wire a 6 F variable length stent was inserted with a curl in the renal pelvis and a curl in the bladder. Bladder was then emptied 10cc of viscous lidocaine instilled. The patient was then awakened and taken to recovery room in stable condition. Patient will be observed in the hospital. Plan ureteral stent removal in 1 to 2 weeks Urine Output 0 Pathology Yes Complications No immediate complications Condition Stable Disposition PACU
--- NOTE | 2024-05-08 15:35 | PC.NURSE ---
Returned from OR per [ ]. Report received from [Jayne ].
[2024-05-08] MEDS: SODIUM CHLORIDE 0.9% IV 1,000 ML 125 ML IV CONT (18:38)
[2024-05-08] MEDS: MORPHINE SULFATE (*CRX) 4 MG/ML INJ IV PUSH (20:04)
[2024-05-09] MEDS: SODIUM CHLORIDE 0.9% IV 1,000 ML 125 ML IV CONT (03:07)
[2024-05-09 05:38] VITALS: BP 104/65; PULSE 93; RESP 16; TEMP 36.6; O2SAT 95
[2024-05-09 08:07] VITALS: BP 109/62; PULSE 96; RESP 16; TEMP 36.3; O2SAT 97
--- NOTE | 2024-05-09 08:44 | PM.IMPN ---
Progress Note: A&P Assessment and Plan (1) ADELE (acute kidney injury): Code(s): N17.9 - Acute kidney failure, unspecified Status: Acute (2) Calculus of distal right ureter: Code(s): N20.1 - Calculus of ureter Status: Acute (3) Acute urinary retention: Code(s): R33.8 - Other retention of urine Status: Resolved Plan Calculus of distal right ureter Right hydronephrosis CT abd/pelvis 3mm stone at the right ureterovesical junction--3 mm stone at right ureterovesicular junction with mild right hydronephrosis and hydroureter. Urology consulted, planning to take to the OR today --Strain urine --strict I&O ADELE Acute urinary retention Creatinine elevated to 1.9. Attempted Cheng placement in the ER but was removed per patient request. Patient reports blood in urine and dysuria, voiding small amounts, weak stream --Check BMP in AM --UA negative for infection, dysuria likely 2/2 trauma from Cheng Subjective Date/time seen: 05/09/24 08:44 Review of Systems Review of Systems: No fevers, chills, nausea, vomiting, abdominal pain, or other symptoms All systems reviewed & are unremarkable except as noted in HPI and below Exam Narrative: General - Awake and alert. No acute distress Eyes - PERRLA, EOM intact ENT - No thrush, No erythema Neck - No noticeable or palpable swelling Lymph Nodes - No lymphadenopathy Cardiovascular - RRR no m/r/g, no JVD Lungs: Clear to auscultation, No wheezing, use of accessory muscles, no crackles or wheezes. Skin - Skin warm and dry, no wounds or rashes Abdomen - Normal bowel sounds, abdomen soft and nontender Extremities - No edema, cyanosis or clubbing Musculoskeletal - 5/5 strength, normal range of motion, no swollen or erythematous joints. Neurological ? Alert and oriented x 3, CN 2-12 grossly intact. Psych: Normal mood and affect Objective Data Vital Signs Vital Signs: Vital Signs - 24 hr 05/08/24 13:17 05/08/24 14:20 05/08/24 14:35 Temperature 97.7 F 98.1 F Pulse Rate 56 L 75 54 L Respiratory Rate 18 14 10 L Blood Pressure 111/59 L 90/60 L 89/61 L Pulse Oximetry 96 100 100 Oxygen Delivery Room Air Simple Face Mask Simple Face Mask Oxygen Flow Rate 8 8 05/08/24 14:50 05/08/24 15:01 05/08/24 15:05 Temperature Pulse Rate 52 L 67 Respiratory Rate 10 L 14 Blood Pressure 94/60 L 124/45 L Pulse Oximetry 100 100 95 Oxygen Delivery Simple Face Mask Room Air Room Air Oxygen Flow Rate 8 05/08/24 15:20 05/08/24 15:33 05/08/24 15:55 Temperature 97.0 F L Pulse Rate 52 L 54 L 53 L Respiratory Rate 14 16 18 Blood Pressure 114/61 105/62 110/60 Pulse Oximetry 95 94 96 Oxygen Delivery Room Air Room Air Oxygen Flow Rate 05/08/24 16:25 05/08/24 16:55 05/08/24 17:55 Temperature 96.7 F L 97.3 F L 97.4 F L Pulse Rate 55 L 81 73 Respiratory Rate 18 18 20 Blood Pressure 109/75 114/95 H 104/61 Pulse Oximetry 97 95 95 Oxygen Delivery Oxygen Flow Rate 05/08/24 20:58 05/08/24 23:30 05/08/24 20:04 Temperature 98.1 F 97.3 F L Pulse Rate 60 60 Respiratory Rate 18 16 Blood Pressure 107/80 101/59 L Pulse Oximetry 94 95 Oxygen Delivery Room Air Oxygen Flow Rate 05/09/24 05:38 05/09/24 08:07 Temperature 97.9 F 97.3 F L Pulse Rate 93 96 Respiratory Rate 16 16 Blood Pressure 104/65 109/62 Pulse Oximetry 95 97 Oxygen Delivery Oxygen Flow Rate Intake/Output Intake/Output: Intake & Output 05/06/24 05/07/24 05/08/24 05/09/24 23:59 23:59 23:59 23:59 Intake Total 3730.0 1400 Output Total 0 0 Balance 0 3730.0 1400 Meds/Results Medications: Active Medications Generic Name Dose Route Start Last Admin Trade Name Edyta PRN Reason Stop Dose Admin Acetaminophen 650 mg 05/08/24 00:58 Acetaminophen 325 Mg Tablet PO Q4H PRN Mild Pain (1-3) or Fever Sodium Chloride 1,000 mls @ 125 mls/hr 05/08/24 01:00 05/09/24 06:12 Normal Saline Iv IV CONT Not Give
[2024-05-09 09:02] LABS: Basophils Percent Auto 0.2 % (0.2-1.2); Eosinophils Percent Auto 0.1 % (0-4.4); Hematocrit 40.2 % (42.0-52.0); Hemoglobin 12.9 g/dL (14.0-18.0); Immature Granulocyte Absolute 0.04 K/mm3 (0.00-0.031); Immature Granulocyte Percent A 0.5 % (0-0.5); Lymphocytes Absolute Auto 1.38 K/mm3 (0.9-3.2); Lymphocytes Percent Auto 16.3 % (18.3-44.2); Mean Corpuscular HGB Conc 32.1 g/dl (32-36); Mean Corpuscular Hemoglobin 28.9 pg (26-34); Mean Corpuscular Volume 89.9 fl (80-100); Mean Platelet Volume 8.8 fl (7.4-10.4); Monocytes Absolute Auto 0.5 K/mm3 (0.1-0.6); Neutrophils Absolute Auto 6.5 K/mm3 (1.3-6.7); Neutrophils Percent Auto 76.9 % (45.5-73.1); Platelet Count Result 209 k/mm3 (150-375); Red Blood Count 4.47 M/mm3 (4.6-6.20); Red Cell Distribution Width 13.8 % (11.5-14.5); White Blood Count 8.5 K/mm3 (4.5-10.0)
[2024-05-09 09:19] LABS: Anion Gap 9 mmol/L (4-12); Blood Urea Nitrogen 29 mg/dL (9-20); Calcium 8.1 mg/dL (8.4-10.2); Carbon Dioxide 22 mmol/L (22-30); Chloride 108 mmol/L (98-107); Estimated CRCL calculation 45 ml/min; Estimated Glomerular Filt Rate 51; Glucose 135 mg/dL (65-110); Potassium 4.5 mmol/L (3.4-5.0); Sodium 139 mmol/L (137-145)
[2024-05-09 09:38] VITALS: BP 111/64; PULSE 61; RESP 14; TEMP 36.3; O2SAT 95
--- NOTE | 2024-05-09 09:39 | WPDUROPN2 ---
Progress Note: A&P Assessment and Plan (1) Calculus of distal right ureter: Code(s): N20.1 - Calculus of ureter Status: Acute Assessment and Plan: Underwent cystoscopy, right ureteroscopy, stone extraction, and right ureteral stent placement on 05/08/2024. Will arrange follow-up for stent removal in 1-2 weeks as an outpatient. Will trial oxybutynin as needed for spasms. Okay for discharge at this time from urology standpoint. Patient is aware of need for outpatient follow-up and understands temporary nature of stent (2) ADELE (acute kidney injury): Code(s): N17.9 - Acute kidney failure, unspecified Status: Acute Assessment and Plan: Creatinine elevated from baseline to 1.9 upon arrival, felt to be due to obstructing stone. Creatinine has improved to 1.4 today. Would be fine with discharge home given improvement. Would recommend recheck BMP as an outpatient in about 1 week to ensure creatinine returns to baseline. (3) Acute urinary retention: Code(s): R33.8 - Other retention of urine Status: Resolved Assessment and Plan: Ruled out. Patient voiding without difficulty. Subjective Subjective Date/Time Seen: 05/09/24 09:39 Interval history: Faisal is doing well today. Tolerated procedure without difficulty. Endorses some mild stent discomfort with associated urgency. Had some hematuria yesterday reports this has resolved today. Denies nausea, vomiting, fever, or chills. Tolerating his diet. Eager for discharge home. Review of Systems Review of Systems: All systems reviewed & are unremarkable except as noted in HPI and below Exam Narrative: General: Awake, alert, comfortable, no acute distress HEENT: Normocephalic, atraumatic, sclerae anicteric Respiratory: Normal respiratory effort, no accessory muscle use Abdomen: Nondistended, soft, nontender Skin: Normal coloration, warm and dry Neurologic: No focal neuro deficits noted Psychiatric: Appropriate mood and affect, judgment and insight intact Objective Data Vital Signs Vital Signs: Vital Signs - 24 hr 05/08/24 13:17 05/08/24 14:20 05/08/24 14:35 Temperature 97.7 F 98.1 F Pulse Rate 56 L 75 54 L Respiratory Rate 18 14 10 L Blood Pressure 111/59 L 90/60 L 89/61 L Pulse Oximetry 96 100 100 Oxygen Delivery Room Air Simple Face Mask Simple Face Mask Oxygen Flow Rate 8 8 05/08/24 14:50 05/08/24 15:01 05/08/24 15:05 Temperature Pulse Rate 52 L 67 Respiratory Rate 10 L 14 Blood Pressure 94/60 L 124/45 L Pulse Oximetry 100 100 95 Oxygen Delivery Simple Face Mask Room Air Room Air Oxygen Flow Rate 8 05/08/24 15:20 05/08/24 15:33 05/08/24 15:55 Temperature 97.0 F L Pulse Rate 52 L 54 L 53 L Respiratory Rate 14 16 18 Blood Pressure 114/61 105/62 110/60 Pulse Oximetry 95 94 96 Oxygen Delivery Room Air Room Air Oxygen Flow Rate 05/08/24 16:25 05/08/24 16:55 05/08/24 17:55 Temperature 96.7 F L 97.3 F L 97.4 F L Pulse Rate 55 L 81 73 Respiratory Rate 18 18 20 Blood Pressure 109/75 114/95 H 104/61 Pulse Oximetry 97 95 95 Oxygen Delivery Oxygen Flow Rate 05/08/24 20:58 05/08/24 23:30 05/08/24 20:04 Temperature 98.1 F 97.3 F L Pulse Rate 60 60 Respiratory Rate 18 16 Blood Pressure 107/80 101/59 L Pulse Oximetry 94 95 Oxygen Delivery Room Air Oxygen Flow Rate 05/09/24 05:38 05/09/24 08:07 Temperature 97.9 F 97.3 F L Pulse Rate 93 96 Respiratory Rate 16 16 Blood Pressure 104/65 109/62 Pulse Oximetry 95 97 Oxygen Delivery Oxygen Flow Rate Intake/Output Intake/Output: Intake & Output 05/06/24 05/07/24 05/08/24 05/09/24 23:59 23:59 23:59 23:59 Intake Total 3730.0 1400 Output Total 0 0 Balance 0 3730.0 1400 Meds/Results Medications: Active Medications Generic Name Dose Route Start Last Admin Trade Name Edyta PRN Reason Stop Dose Admin Acetaminophen 650 mg 05/08/24 00:58 Acetaminophen 325
--- NOTE | 2024-05-09 11:00 | P.PNAN_ITS ---
Anes - Prog Note Post-Op Date/Time: 05/09/24 11:00 Cardiovascular status: normal Respiratory status: normal Airway patency: baseline Mental status: baseline Post-Op hydration status: normal Vital Signs: Last Vital Signs Temp 36.3 C L 05/09/24 09:38 Pulse 61 05/09/24 09:38 Resp 14 05/09/24 09:38 BP 111/64 05/09/24 09:38 Pulse Ox 95 05/09/24 09:38 O2 Del Method Room Air 05/09/24 08:00 O2 Flow Rate 8 05/08/24 14:50 Pain Score (VAS): Patient asleep, no nonverbal signs of pain present at this time. I/O: Intake & Output 05/08/24 05/09/24 05/09/24 23:59 07:59 15:59 Intake Total 1308.3 1400 450 Balance 1308.3 1400 450 Laboratory Tests 05/09/24 08:57 05/09/24 08:57 05/09/24 08:57 WBC 8.5 RBC 4.47 L Hgb 12.9 L Hct 40.2 L MCV 89.9 MCH 28.9 MCHC 32.1 RDW 13.8 Plt Count 209 MPV 8.8 Immature Gran % (Auto) 0.5 Neut % (Auto) 76.9 H Lymph % (Auto) 16.3 L [place] % (Auto) 6.0 Eos % (Auto) 0.1 Baso % (Auto) 0.2 Lymph # (Auto) 1.38 [place] # (Auto) 0.5 Eos # (Auto) 0.0 Baso # (Auto) 0.0 Abs Immat Gran (auto) 0.04 H Absolute Neuts (auto) 6.5 Absolute Nucleated RBC 0.000 Nucleated RBC % 0.0 Sodium 139 Potassium 4.5 Chloride 108 H Carbon Dioxide 22 Anion Gap 9 BUN 29 H Creatinine 1.40 H Estim Creat Clear Calc 45 Estimated GFR 51 L Glucose 135 H Calcium 8.1 L Post-procedural complaints: none Patient Feedback: Patient satisfied with anesthetic care.
[2024-05-09 13:38] VITALS: BP 120/60; PULSE 63; RESP 16; TEMP 36.6; O2SAT 95
--- NOTE | 2024-05-09 14:07 | PM.DS ---
DS: Admitting Diagnosis Discharge Date 05/09/24 Admitting Diagnosis Kidney stone, ADELE DS: Discharge Diagnosis Discharge Diagnosis (1) Calculus of distal right ureter: Code(s): N20.1 - Calculus of ureter Status: Acute (2) ADELE (acute kidney injury): Code(s): N17.9 - Acute kidney failure, unspecified Status: Acute Plan BMP in 1 week Follow up with urology in 1-2 weeks for stent removal DS: Summary Hospital Course Reason for hospitalization: Nephrolithiasis, ADELE Hospital Course: Faisal Simpson was admitted for treatment of an obstructive kidney stone. Urology was consulted and a cystoscopy was done on 05/08, now s/p stone extraction, retrograde pyelogram. He had narrowing to the right ureter, stone past the narrowing and stent was placed. Urology planning ureteral stent removal in 1-2 weeks. Post procedure pain controlled. Creatinine improved from 1.9 to 1.4. He will have a repeat BMP in a week and follow up with urology. Discussed no NSAIDs. Encouraged hydration Status at Discharge Cognitive/behavioral status at discharge: Alert and Oriented x3 Time Spent with Patient Time attestation: Total time spent providing and/or coordinating discharge services: 38 minutes Exam Narrative: General - Awake and alert. No acute distress Eyes - PERRLA, EOM intact ENT - No thrush, No erythema Neck - No noticeable or palpable swelling Lymph Nodes - No lymphadenopathy Cardiovascular - RRR no m/r/g, no JVD Lungs: Clear to auscultation, No wheezing, use of accessory muscles, no crackles or wheezes. Skin - Skin warm and dry, no wounds or rashes Abdomen - Normal bowel sounds, abdomen soft and nontender. Extremities - No edema, cyanosis or clubbing Musculoskeletal - 5/5 strength, normal range of motion, no swollen or erythematous joints. Neurological ? Alert and oriented x 3, CN 2-12 grossly intact. Psych: Normal mood and affect DS: Data Data Completed and Pending Pending studies at discharge: Pending at discharge 05/08/24 14:10 Surgical [PTH] Routine Labs on day of discharge: Labs from last 24 hours 05/09/24 08:57 WBC 8.5 RBC 4.47 L Hgb 12.9 L Hct 40.2 L MCV 89.9 MCH 28.9 MCHC 32.1 RDW 13.8 Plt Count 209 MPV 8.8 Immature Gran % (Auto) 0.5 Neut % (Auto) 76.9 H Lymph % (Auto) 16.3 L [place] % (Auto) 6.0 Eos % (Auto) 0.1 Baso % (Auto) 0.2 Lymph # (Auto) 1.38 [place] # (Auto) 0.5 Eos # (Auto) 0.0 Baso # (Auto) 0.0 Abs Immat Gran (auto) 0.04 H Absolute Neuts (auto) 6.5 Absolute Nucleated RBC 0.000 Nucleated RBC % 0.0 Sodium 139 Potassium 4.5 Chloride 108 H Carbon Dioxide 22 Anion Gap 9 BUN 29 H Creatinine 1.40 H Estim Creat Clear Calc 45 Estimated GFR 51 L Glucose 135 H Calcium 8.1 L Discharge Plan Discharge Attending physician on discharge: Mallorie Grewal Discharging Clinician: Mallorie Grewal Anticipated Discharge Date/Time: 05/09/24 13:57 Patient Disposition: Home, Self-Care Activity: as tolerated Diet: regular Wound Care Instructions: follow printed instructions Discharge Instructions: Follow up with urology for stent removal, . You should have labs draw in a week to check you kidney function. OK to take tylenol, No NSAIDs (naproxen, ibuprofen) Patient Instructions: Antibiotic Form, Pain Management (DC) Stand Alone Forms: General Discharge Information Follow-up/Referrals: Gilmar Ennis MD [Physician] - 05/22/24 11:30 am Discharge Medications: New oxybutynin chloride 5 mg tablet 5 mg PO TID PRN (Reason: bladder spasms) Qty: 20 0RF Other Ambulatory Orders: Basic Metabolic Panel (Routine) Timeframe: 1 Week Location: Determined by Patient Ordered By: Mallorie Grewal Date of admission: 05/08/24 00:58 Primary Care Provider: Bello Hdz Admitting Provider: Hayder Menjivar V. Attending physician on admission: Mallorie Grewal Condition: Stable Quality If
== END 2024-05-09 14:51 | disposition home or self-care (01) ==
LOC: ANHED 21:46 → ANH3MEDSUR 05-08 03:00
PROVIDERS: Physician Assistant; Urology; Admitting Provider Internal Medicine; Emergency Provider Physician Assistant; PCP Family Medicine; Visit Provider Nurse Practitioner Acute Care
PROC: (CPT 52352; principal; 2024-05-08 13:30)
DX: N13.2 Hydronephrosis with renal and ureteral calculous obstruction (principal); N17.9 Acute kidney failure, unspecified; R33.8 Other retention of urine; Z96.0 Presence of urogenital implants; Z87.891 Personal history of nicotine dependence
CPT/HCPCS: 52332; 52352; 36415; 74176; 74420; 80048; 80053; 81001; 82365; 83690; 85025; 88300; 96361; 96374; 96375; 99285; A9270; C1769; C2617; G0378; J0690; J1100; J2250; J2270; J2405; J2704; J3010; J7030; J7120; Q9966

== ENCOUNTER 2024-05-16 09:36 | Outpatient (CLI) | payer OTHER, SELFPAY ==
[2024-05-16 14:33] LABS: Anion Gap 7 mmol/L (4-12); Blood Urea Nitrogen 18 mg/dL (9-20); Calcium 8.9 mg/dL (8.4-10.2); Carbon Dioxide 29 mmol/L (22-30); Chloride 99 mmol/L (98-107); Estimated Glomerular Filt Rate > 60; Glucose 90 mg/dL (65-110); Potassium 4.7 mmol/L (3.4-5.0); Sodium 135 mmol/L (137-145)
== END 2024-05-16 09:37 | disposition home or self-care (01) ==
LOC: ANHGOSHLAB 09:37
PROVIDERS: PCP Family Medicine; Visit Provider Nurse Practitioner Acute Care
DX: N17.9 Acute kidney failure, unspecified (principal)
CPT/HCPCS: 36415; 80048

== ENCOUNTER 2024-07-09 13:00 | Outpatient (CLI) | payer OTHER, SELFPAY ==
--- NOTE | ~2024-07-09 | XR_ITS ---
EXAMINATION: XR abdomen/kub 1V DATE: 07/09/2024 13:21 INDICATION: Right ureteral stone. TECHNIQUE: A supine view of the abdomen on 2 radiographs was obtained. COMPARISON: CT abdomen and pelvis 05/07/2024, lumbar spine radiographs 12/12/2021 FINDINGS: There are no dilated loops of bowel. There are phleboliths in the pelvis. IMPRESSION: 1. No visible urolithiasis. Reviewed, dictated and finalized at location B. IMPRESSION: 1. No visible urolithiasis.
== END 2024-07-09 13:01 | disposition home or self-care (01) ==
PROVIDERS: PCP Family Medicine; Visit Provider Urology
DX: N20.1 Calculus of ureter (principal)
CPT/HCPCS: 74018